=== PATIENT | female | born 1965 | race Caucasian/White ===

== ENCOUNTER 2025-07-19 11:29 | Emergency (ER) | payer BC, SELFPAY ==
[2025-07-19] VITALS (11 sets, daily range): BP systolic 122–178; BP diastolic 73–91; PULSE 68–76; RESP 15–56; TEMP 36.1; O2SAT 88–100; BMI 29.2
--- NOTE | 2025-07-19 12:04 | PC.NURSE ---
pt did have an emesis in triage room as she was being brought back, aware
--- NOTE | 2025-07-19 12:07 | CRLHL7_ITS ---
For Patients: As a result of the Century Cures Act, medical imaging exams and procedure reports are released immediately into your electronic medical record. You may view this report before your referring provider. If you have questions, please contact your health care provider. INDICATION: Fall. Back pain. COMPARISON: None. TECHNIQUE: Noncontrast CT lumbar spine. FINDINGS: Normal vertebral body alignment. There is anterior wedging and approximately 40-50 percent loss of height of the L1 vertebral body. Cortical regularity along the inferior endplate. Finds consistent with the recent, likely acute subacute compression fracture. There is retropulsion of the posterior inferior corner of vertebral body measures approximately 3 mm in AP dimension. No other fractures. No fractures of the visualized lower ribs. No sacral fractures. T12-L1: No spinal canal neural foraminal narrowing. L1-2: Retropulsion of the posterior inferior corner of the compressed L1 vertebral body contributes to mild narrowing of the spinal canal. No neural foraminal narrowing. L2-3 L3-4: No spinal canal neural foraminal narrowing. L4-5: Disc degeneration. Diffuse disc bulge. No narrowing of spinal canal. No neural foraminal narrowing. L5-S1: Posterior disc bulge. No narrowing of the spinal canal. No impingement of the traversing S1 nerve roots. Mild narrowing of the left neural foramen. No narrowing of the right neural foramen. Degenerative changes of the SI joints. Vascular calcifications. Horseshoe kidney. IMPRESSION: 1. Recent, acute subacute compression fracture of the L1 vertebral body with 40-50 percent loss of height. Retropulsion of the posterior inferior corner of the vertebral body measures approximately 3 millimeters. 2. No other fractures. 3. At L1-2, mild narrowing of the spinal canal. 4. At L5-S1, mild narrowing of the left neural foramen Please note that all CT scans at this facility use dose modulation, iterative reconstruction, and/or weight-based dosing when appropriate to reduce radiation dose to as low as reasonably achievable. Dictated by Dominick Duran MD @ 07/19/2025 12:52:47 PM (Electronically Signed)
--- NOTE | 2025-07-19 12:07 | CRLHL7_ITS ---
For Patients: As a result of the Century Cures Act, medical imaging exams and procedure reports are released immediately into your electronic medical record. You may view this report before your referring provider. If you have questions, please contact your health care provider. INDICATION: Fall. Back pain. COMPARISON: None. TECHNIQUE: Noncontrast CT head. FINDINGS: Mild generalized volume loss. No acute intracranial hemorrhage, acute infarct, focal edema, mass effect, or fracture. No midline shift. No abnormal ventricular dilatation. Normal calvarium and skull base. Visualized paranasal sinuses mastoid air cells are clear. Normal orbits bilaterally. IMPRESSION: 1. No acute intracranial abnormality. 2. Mild generalized cerebral volume loss Please note that all CT scans at this facility use dose modulation, iterative reconstruction, and/or weight-based dosing when appropriate to reduce radiation dose to as low as reasonably achievable. Dictated by Dominick Duran MD @ 07/19/2025 12:48:21 PM (Electronically Signed)
--- NOTE | 2025-07-19 12:13 | ED_ITS ---
HPI - General Adult General Chief complaint: Back Injury/Pain Stated complaint: fell - back pain Time Seen by Provider: 07/19/25 11:47 Source: patient and family Mode of arrival: ambulatory Limitations: no limitations History of Present Illness HPI narrative: 59-year-old female presents the emergency department 11 hours after she fell while drinking alcohol in her home. She comes in with her daughter. Apparently her son and were home at the time. They attended to her, gave her some Tylenol. There was no evidence of seizure. Daughter states that the other family members told her that she fell backwards, hitting her head. No loss of consciousness. Rolled onto her side quickly after. They were able to get her up and she was able to ambulate. She is reporting bilateral lower lumbar pain, both sides. No numbness or tingling. No prior history of back surgery or major prior injury but does report ?inflammation? frequently. It does not appears though she is seen by a healthcare practitioner for this. Family states that she did seem a little ?off? after the event but they attributed that to intoxication. Patient denies that she had any syncopal symptoms, dizziness or other prodromal feelings prior to the fall but it does seem as though her memory of this was impaired due to intoxication. She reports no fever or recent illness. No difficulty moving any parts of her body. Back pain currently rated as 8/10. Uncertain which movements make it worse as it hurts ?all the time. Does not appear to be any radiculopathy. No shortness of breath or other focal neurological changes. No history of rheumatological disease, immunocompromised state. She did vomit in triage. Past medical history benign per her report. No major long-term health problems. No long-term prescription medications but apparently she has been prescribed blood pressure medications in the past, no longer using. No allergies. Denies tobacco use. ROS is notable for the back pain, otherwise denies systemic symptoms times 12 systems. Related Data Previous Rx's ?Medication ?Instructions ?Recorded cyclobenzaprine 10 mg tablet 10 mg PO HS PRN muscle sp asm #20 07/19/25 tabs ketorolac 10 mg tablet 10 mg PO Q6H PRN pain 5 days #20 07/19/25 tabs oxycodone 5 mg tablet 5 mg PO Q6H PRN pain #12 tab s 07/19/25 Allergies Allergy/AdvReac Type Severity Reaction Status Date / Time No Known Drug Allergies Allergy Verified 07/19/25 11:38 Exam Const: Vital Signs, click to edit/add: Vital Signs - 24 hr 07/19/25 11:39 07/19/25 12:59 07/19/25 13:00 Temperature 97.0 F L Pulse Rate 72 Pulse Rate [Right Pulse Oximeter] 76 Respiratory Rate 20 16 18 Blood Pressure 150/82 H Blood Pressure [Ri ght Upper Arm] 122/84 Pulse Oximetry 98 90 07/19/25 13:02 07/19/25 13:15 07/19/25 13:30 Temperature Pulse Rate 71 72 74 Pulse Rate [Right Pulse Oximeter] Respiratory Rate 19 18 18 Blood Pressure 149/73 H Blood Pressure [Ri ght Upper Arm] Pulse Oximetry 88 100 94 07/19/25 13:32 07/19/25 13:45 Temperature Pulse Rate 71 74 Pulse Rate [Right Pulse Oximeter] Respiratory Rate 15 20 Blood Pressure 157/83 H Blood Pressure [Ri ght Upper Arm] Pulse Oximetry 95 88 Documenting provider has reviewed patient's vital signs: yes Other: Does still seem slightly intoxicated. Poor historian. Can answer yes no questions. Appears well nourished, well hydrated. HENMT: Common normals: normocephalic, head/scalp atraumatic, TM's normal bilaterally, moist oral mucous membranes and oropharynx normal Head and scalp: normocephalic and atraumatic Face and sinus: normal facial exam Tympanic membrane: TM's normal bilaterally Eye: Common normals: PERRL, EOMs intact bilaterally and conjunctivae normal General eye: normal appearance of both eyes Conjunctiva: conjunctiva(e) normal Pupil: PERRL Neck & C-Spine: Common normals: full ROM, no lymphadenopathy and no meningeal signs General: normal visual inspection Cervical spine: cervical ROM normal; no cervical spine tenderness and no step off deformity Chest: Common normals: inspection of chest normal Resp: Common normals: normal respiratory effort, no use of accessory muscles and clear to auscultation bilaterally Effort & inspection: able to speak in complete sentences Auscultation: clear to auscultation bilaterally Cardio: Common normals: regular rate, regular rhythm, S1 normal heart sound, S2 normal heart sound and no murmurs Rate: regular rate Rhythm: regular rhythm Heart sounds: S1 normal and S2 normal GI: Common normals: Normal to inspection, nondistended, normoactive bowel sounds present, soft to palpation, non-tender, no hepatosplenomegaly and no masses Palpation: soft and no hepatosplenomegaly Back & Pelvis: Common normals: thoracic and lumbar spine normal to inspection Other: There is no point bony tenderness to the thoracolumbar spine. She does have paraspinal muscle tenderness and some mild tenderness over the SI joints. Strai ght leg lift is negative. No bony deformity. Extremity: Common normals: normal to inspection and full ROM Other: Lower legs appear without injury. Upper extremities appear without injury. Strength in the feet, lower legs is symmetric and equal. Sensation in the lower extremities is symmetric and equal. Neuro: Meningeal signs: no meningeal signs Cranial nerves: CN normal except as noted Speech: speech normal Motor exam: strength 5/5 throughout and no tremor noted Psych: Common normals: speech normal Appearance: grossly normal Speech: normal speech Other: Does seem intoxicated. His memory and impaired, suspect from intoxication but cannot exclude other pathology. Skin: Common normals: no rashes or lesions noted General skin exam: no rashes or lesions noted Course Course ED Course: 59-year-old female with fall while drinking alcohol with delayed vomiting, altered mental status and low back pain. Concern for underlying head injury. Cannot exclude other pathology that complete chip fall such as acute coronary syndrome, arrhythmia, syncope. Will obtain head CT. Please peripheral IV, placed on release of information clerk. CT of the lumbar spine as well. There does not seem to be any cervical spine injury and she is freely moving the neck in all directions. Will obtain an alcohol level and typical intra-abdominal labs to look for other sources for her vomiting as well. Will give Toradol, 5 mg of cyclobenzaprine and Zofran. Await findings. Reevaluation(s) Time of Reevaluation #1: 14:08 Reevaluation #1: Counseled patient family on findings. CT scan of the head does not show any signs of skull fracture or intracranial hemorrhage but does show degenerative changes that are out of proportion for someone her age, likely related to the alcohol. This combined with the fact that her liver enzymes are mildly elevated, salt levels are low does pain to pictures someone with chronic alcohol overuse. This was discussed with family and complete alcohol cessation is encouraged. Most worrisome is that she does have an L1 compression fracture but it is less than 50% total body height. There is no impingement on the spinal cord or foramina. She is not experiencing any radiculopathy type symptoms. She is not reporting any improvement in her pain but she is clearly more comfortable. I gipson d an extensive discussion with her family on all findings today. Patient seemed ?checked out? for the entire conversation. We discussed pain control. Typical healing course of compression fractures as reviewed with family. Long-term outcomes can not be pretty good but it will never be back to normal. Begin with Tylenol 1000 mg every 6 hours. Prescription for Toradol 10 mg q.i.d. for the next 5 days then switch to [id number] ibuprofen or Aleve. Limited prescriptions for cyclobenzaprine 10 mg at bedtime and oxycodone 5 mg q.6 p.r.n. provided as well. Patient will need to follow-up appointment with a primary care provider Monday or Monday for additional refills and long-term plan. All questions answered, written instructions provided. Vital Signs Vital signs: Initial Vital Signs Temperature 97.0 F L 07/19/25 11:39 Temperature Source Temporal Artery Scan 07/19/25 11:39 Pulse Rate 76 07/19/25 11:39 Respiratory Rate 20 07/19/25 11:39 Blood Pressure 122/84 07/19/25 11:39 Blood Pressure Mean 96 07/19/25 11:39 Blood Pressure Position Sitting 07/19/25 11:39 Pulse Oximetry 98 07/19/25 11:39 Vital Signs Temperature 97.0 F L 07/19/25 11:39 Pulse Rate 76 07/19/25 11:39 Respiratory Rate 20 07/19/25 11:39 Blood Pressure 122/84 07/19/25 11:39 Pulse Oximetry 98 07/19/25 11:39 Temperature 97.0 F L 07/19/25 11:39 Pulse Rate 74 07/19/25 13:45 Respiratory Rate 20 07/19/25 13:45 Blood Pressure 157/83 H 07/19/25 13:32 Pulse Oximetry 88 07/19/25 13:45 Medications Administered Medications: Discontinued Medications Generic Name Dose Route Start Last Admin Trade Name Freq PRN Reason Stop Dose Admin Hydrocodone Bitart/Acetaminophen 2 tab 07/19/25 13:02 07/19/25 13:09 Hydrocodone-Acetamin 5-325 Mg 1 Tab PO 07/19/25 13:03 2 tab ONCE ONE Administration Cyclobenzaprine HCl 5 mg 07/19/25 12:07 07/19/25 12:42 Cyclobenzaprine Hcl 10 Mg Tablet PO 07/19/25 12:08 5 mg ONCE ONE Administration Ketorolac Tromethamine 15 mg 07/19/25 12:07 07/19/25 12:40 Ketorolac 15 Mg/Ml Inj IVP 07/19/25 12:08 15 mg ONCE ONE Administration Ondansetron HCl 4 mg 07/19/25 12:07 07/19/25 12:40 Ondansetron 2 Mg/Ml Inj IVP 07/19/25 12:08 4 mg ONCE ONE Administration Medical Decision Making Lab Data Lab results reviewed: Yes I reviewed the patient's lab results Lab results narrative: No anemia. No signs of any cardiovascular compromise. Sodium is mildly low and liver enzymes are elevated in consistent with chronic alcohol abuse pattern. No significant hypokalemia. Alcohol level is still detectable despite 11 hours from drinking. Labs: Lab Results 07/19/25 Range/Units 12:40 WBC 8.22 (4.50-11.00) K/uL RBC 3.88 L (4.00-5.20) m/uL Hgb 13.8 (12.0-16.0) gm/dL Hct 38.7 (33.0-51.0) % MCV 100 (80-100) fL MCH 36 H (26-34) pg MCHC 36 (32-36) gm/dL RDW Coeff of Shane 12.1 (11.5-15.5) % Plt Count 237 (140-440) K/uL Neut % (Auto) 80.3 H (42.0-72.0) % Lymph % (Auto) 14.1 L (20-44) % Antelope % (Auto) 4.6 (0.0-11.0) % Eos % (Auto) 0.2 (0.0-7.0) % Baso % (Auto) 0.4 (0.0-3.0) % Neut # (Auto) 6.60 (1.7-7.0) K/uL Lymph # (Auto) 1.20 (0.90-2.90) K/uL Antelope # (Auto) 0.40 (0.00-0.90) K/UL Eos # (Auto) 0.02 (0.00-0.50) K/uL Baso # (Auto) 0.03 (0.00-0.30) K/uL Abs Immat Gran (auto) 0.03 (0.00-0.30) K/uL Imm/Tot Granulo (auto) 0.4 % Sodium 128 L (135-149) mmol/L Potassium 4.1 (3.6-5.1) mmol/L Chloride 97 (96-114) mmol/L Carbon Dioxide 23 (20-32) mmol/L Anion Gap 8 (7-15) mEq/L BUN 2 L (7-30) mg/dL Creatinine 0.4 L (0.5-1.5) mg/dL Estimated Creat Clear 51.02 Estimated GFR 113 ml/min Glucose 131 H (60-115) mg/dL Calcium 8.7 (8.4-10.6) mg/dL Total Bilirubin 0.5 (0.1-1.5) mg/dL AST 70 H (12-35) U/L ALT 57 H (4-35) U/L Alkaline Phosphatase 100 (40-150) U/L Total Protein 7.2 (6.0-8.3) g/dL Albumin 4.2 (3.3-5.0) g/dL Lipase 32 (23-300) U/L Ethyl Alcohol 0.02 (0.01-0.03) % POC Troponin I 0.00 L (0.01-0.04) ng/ml Imaging Data CT scan - head: Attestation: I have reviewed the pertinent imaging results. My impression: Vascular calcifications and some early degenerative changes, but no obvious skull fracture or intracranial hemorrhage Radiologist's impression: IMPRESSION: 1. No acute intracranial abnormality. 2. Mild generalized cerebral volume loss Please note that all CT scans at this facility use dose modulation, iterative reconstruction, and/or weight-based dosing when appropriate to reduce radiation dose to as low as reasonably achievable. Dictated by Dominick Duran MD @ 07/19/2025 12:48:[address] lumbar spine: Attestation: I have reviewed the pertinent imaging results. My impression: Compression fracture at L1, does appear acute. I would say it is around 50% height loss posteriorly. There is some posterior displacement. Radiologist's impression: There is anterior wedging and approximately 40-50 percent loss of height of the L1 vertebral body. Cortical regularity along the inferior endplate. Finds consistent with the recent, likely acute subacute compression fracture. There is retropulsion of the posterior inferior corner of vertebral body measures approximately 3 mm in AP dimension. No other fractures. No fractures of the visualized lower ribs. No sacral fractures. T12-L1: No spinal canal neural foraminal narrowing. L1-2: Retropulsion of the posterior inferior corner of the compressed L1 vertebral body contributes to mild narrowing of the spinal canal. No neural foraminal narrowing. L2-3 L3-4: No spinal canal neural foraminal narrowing. L4-5: Disc degeneration. Diffuse disc bulge. No narrowing of spinal canal. No neural foraminal narrowing. L5-S1: Posterior disc bulge. No narrowing of the spinal canal. No impingement of the traversing S1 nerve roots. Mild narrowing of the left neural foramen. No narrowing of the right neural foramen. Degenerative changes of the SI joints. Vascular calcifications. Horseshoe kidney. IMPRESSION: 1. Recent, acute subacute compression fracture of the L1 vertebral body with 40-50 percent loss of height. Retropulsion of the posterior inferior corner of the vertebral body measures approximately 3 millimeters. 2. No other fractures. 3. At L1-2, mild narrowing of the spinal canal. 4. At L5-S1, mild narrowing of the left neural foramen Please note that all CT scans at this facility use dose modulation, iterative reconstruction, and/or weight-based dosing when appropriate to reduce radiation dose to as low as reasonably achievable. Dictated by Dominick Duran MD @ 07/19/2025 12:52:47 PM ECG Data Attestation: I personally reviewed and interpreted this ECG as follows: Prior ECG tracings: not available for review Interpretation: Sinus rhythm with a rate of 70. No significant ST or T-wave abnormalities. Normal intervals and axis. Normal EKG Discharge Plan Discharge Clinical Impression: Compression fracture of L1 vertebra Patient Disposition: Home w/ Parent or Adult Condition: Stable Instructions: Vertebral Compression Fracture (ED) Additional Instructions: As we discussed, there is a mild to moderate compression fracture at the L1 vertebrae level. It is not pressing on the spinal cord or any of the nerves that exit the spine, but these can still be very painful. Since the height loss is not more than 50%, interventions like cement injections or surgery are not likely to be helpful. For many people, the pain does improve does the bones start to reform, even in just a few days. They do take up to a couple of months to heal. Now the bones will never be fully back to normal but often the pain will improve markedly after a few weeks. I cannot stress enough the importance of stopping alcohol completely. Your labs reflect that your liver shows chronic inflammation, your salt levels are low and the scan of your brain shows faster aging than would be expected. These are all signs of heavy long-term alcohol abuse. It is important that you avoid falls to prevent further injury to your spine, therefore I recommend that you stop drinking entirely. For pain, please begin with Tylenol 1000 mg every 6 hours. Take this diligently. I have given you a supply of Toradol, and anti-inflammatory pain medicine to use for the next 5 days. Take 1 pill up to every 6 hours. After those 5 days, you may switch to ibuprofen or Aleve instead. Try not to take additional ibuprofen or Aleve while you are still taking the Toradol. I am also giving you a limited supply of oxycodone. We are only allowed to give a 3 day supply in the emergency room. You may take 1 pill up to every 6 hours for severe pain. You will need to make a follow-up appointment with a primary care provider on Monday to see how things are going and to determine plan for longer-term pain management. If there is sudden loss of function of the bowel or bladder, weakness in the legs or other signs of severe injury, you should return to an emergency department. Activity Level: Activity as Tolerated Discharge Diet: Regular Prescriptions: New ketorolac 10 mg tablet 10 mg PO Q6H PRN (Reason: pain) 5 Days Qty: 20 0RF cyclobenzaprine 10 mg tablet 10 mg PO HS PRN (Reason: muscle spasm) Qty: 20 0RF oxycodone 5 mg tablet 5 mg PO Q6H PRN (Reason: pain) Qty: 12 0RF Follow Up/Referrals: Provider,Not a Local [Primary Care Provider, Family Practice] Stand Alone Forms: [employer] Info Instructions
[2025-07-19] MEDS: ONDANSETRON 2 MG/ML inj 4 MG IVP (12:40)
[2025-07-19] MEDS: CYCLOBENZAPRINE HCL 10 MG TABLET 5 MG PO (12:42)
[2025-07-19 12:53] LABS: Hematocrit* 38.7 % (33.0-51.0); Hemoglobin* 13.8 gm/dL (12.0-16.0); Immature Granulocytes Abs Auto 0.03 K/uL (0.00-0.30); Immature Granulocytes Pct Auto 0.4 %; Mean Corpuscular HGB Conc 36 gm/dL (32-36); Mean Corpuscular Hemoglobin 36 pg (26-34); Mean Corpuscular Volume 100 fL (80-100); RDW Coefficient of Variation % 12.1 % (11.5-15.5); Red Blood Count* 3.88 m/uL (4.00-5.20); White Blood Count* 8.22 K/uL (4.50-11.00)
[2025-07-19 12:54] LABS: Lymphocytes Absolute Auto 1.20 K/uL (0.90-2.90)
[2025-07-19 12:56] LABS: Slide Review Reflex No
[2025-07-19 13:05] LABS: Troponin, Point-of-Care* 0.00 ng/ml (0.01-0.04)
[2025-07-19 13:06] LABS: Albumin* 4.2 g/dL (3.3-5.0); Chloride* 97 mmol/L (96-114); Sodium* 128 mmol/L (135-149)
[2025-07-19 13:07] LABS: Potassium* 4.1 mmol/L (3.6-5.1)
[2025-07-19 13:09] LABS: Alanine Aminotransferase* 57 U/L (4-35); Alkaline Phosphatase* 100 U/L (40-150); Anion Gap 8 mEq/L (7-15); Aspartate Amino Transferase* 70 U/L (12-35); Bilirubin Total* 0.5 mg/dL (0.1-1.5); Blood Urea Nitrogen* 2 mg/dL (7-30); Carbon Dioxide* 23 mmol/L (20-32); Creatinine* 0.4 mg/dL (0.5-1.5); Est. Creatinine Clearance* 51.02; Estimated Glomerular Filt Rate 113 ml/min; Total Protein* 7.2 g/dL (6.0-8.3)
[2025-07-19] MEDS: HYDROCODONE-ACETAMIN 5-325 MG 1 TAB 2 TAB PO (13:09)
[2025-07-19 13:10] LABS: Calcium* 8.7 mg/dL (8.4-10.6); Ethanol* 0.02 % (0.01-0.03); Glucose* 131 mg/dL (60-115)
== END 2025-07-19 14:25 | disposition home or self-care (01) ==
PROVIDERS: Emergency Provider Family Medicine
DX: S32.019A Unspecified fracture of first lumbar vertebra, initial encounter for closed fracture (principal); R11.10 Vomiting, unspecified; F10.90 Alcohol use, unspecified, uncomplicated; W19.XXXA Unspecified fall, initial encounter
CPT/HCPCS: 36415; 70450; 72131; 80053; 82077; 83690; 84484; 85025; 93005; 96374; 96375; 99284; 99285; A9270; J1885; J2405